=== PATIENT | male | born 1950 | race Hispanic/Latino ===

== ENCOUNTER 2016-05-18 07:19 | Inpatient (IN) | payer MEDICARE, OTHER ==
--- NOTE | 2016-05-18 09:23 | Emergency Department Report ---
Chief Complaint: Abdominal Pain Stated Complaint: ABD PAIN Time Seen by Provider: 05/18/16 09:23 - HPI History of Present Illness: Patient here with his reports that abdominal pain 3weeks. He is also reporting that he is having some shortness of breath. Pain to right lower quadrant is 10 out of 10 and feels crampy. Patient has history of diabetes hypertension. He said he has kidney disease and is on dialysis. Patient is blind. Has a history of coronary stent from CAD, appendectomy and fistula graft combination in left upper arm. Patient gets dialysis Saturday and Saturdays. reports the patient hasn't had a bowel movement in 3 weeks. Reports he has decreased appetite and only been eating Jell-O and apple sauce.Denies fever or chills. Denies patient with vomiting or diarrhea. - ROS Review of Systems: All systems are negative unless stated in HPI above. - Exam Vital Signs: Vital Signs 05/18/16 07:23 Temperature 98.1 F Pulse Rate 89 Blood Pressure 194/87 O2 Sat by Pulse 98 Oximetry Resp 20 Physical Exam: General: This is a 65-year-old male that is initiated and frail looking. CV: S1, S2 regular rate and rhythm. Patient with fistula/graft combination to left upper arm. Good thrill and audible bruit. Lungs: Clear to auscultate bilaterally, no rhonchi wheezes or rales. Abdomen: Soft with mild tenderness to palpate to right lower quadrant. No guarding or rebound tenderness. Normal bowel sounds in all quadrants. No distention or rigidity. MSE screening note: Focused history and physical exam performed. Due to findings the following was ordered:see [facility] ED Medical Decision Making - Medical Decision Making Medical decision making: Patient seen by provider in triage area. Appropriate protocol activated and patient to main ED to be seen by physician. ED Disposition for MSE Condition: Stable
[2016-05-18 09:59] LABS: Basophils % (Auto) 0.4 % (0.0-1.8); Eosinophils % (Auto) 0.3 % (0.0-4.3); Hematocrit 44.3 % (35.5-45.6); Hemoglobin 13.8 gm/dl (11.8-15.2); Mean Corpuscular HGB Conc 31 % (32-34); Mean Corpuscular Hemoglobin 28 pg (28-32); Mean Corpuscular Volume 89 fl (84-94); Platelet Count 133 K/mm3 (140-440); Red Blood Count 4.98 M/mm3 (3.65-5.03); Red Cell Distribution Width 18.4 % (13.2-15.2); White Blood Count 11.1 K/mm3 (4.5-11.0)
[2016-05-18 10:09] LABS: Creatine Kinase MB 3.8 ng/mL (0.0-4.0)
[2016-05-18 10:10] LABS: Albumin 3.8 g/dL (3.9-5); BUN/Creatinine Ratio 6.66; Bilirubin,Total 0.8 mg/dL (0.1-1.2); Calcium 8.9 mg/dL (8.4-10.2); Chloride 90.5 mmol/L (98-107); Potassium 3.4 mmol/L (3.6-5.0); Total Protein 7.8 g/dL (6.3-8.2)
--- NOTE | 2016-05-18 10:55 | XRay Report ---
CHEST 2 VIEWS: INDICATION: Shortness of breath. COMPARISON: 05/11/2016 FINDINGS: Frontal and lateral chest radiographs in this patient in wheelchair demonstrates some extrinsic artifact. Grossly stable cardiomediastinal silhouette and mild bibasilar opacity/effusions with obscured hemidiaphragms and costophrenic angle blunting. No overt CHF, however. Demineralized bones. CONCLUSION: Bilateral pleural effusions and possible COPD, as described. Thank you for the opportunity to participate in this patient's care.
--- NOTE | 2016-05-18 11:08 | XRay Report ---
Supine upright views of the abdomen: There is fecal matter scattered throughout the colon. There is no soft tissue mass and no free air. No soft tissue calcification. Compared to the prior examination of May 11, 2016 the general pattern is unchanged. Impression: Moderate fecal load. No recent finding.
--- NOTE | 2016-05-18 11:34 | Admit Criteria Form ---
Admission Criteria Documentation: ABDOMINAL PAIN Clinical Indications for Admission to Inpatient Care (Place 'X' for any and all applicable criteria): Admission is indicated for ANY ONE of the following(1)(2)(3)(4)(5): [X ]I. Inpatient admission required rather than observation care (Also use Abdominal Pain: Observation Care, as appropriate) because of ANY ONE of the following: [ ]a) Severe pain requiring acute inpatient management [ ]b) Identification of etiology/finding that requires inpatient care (eg, aortic dissection, free air) [ ]c) Absent bowel sounds with complete ileus(6) [ ]d) Suspected toxic megacolon [ ]e) Severe electrolyte abnormalities requiring inpatient care [ ]f) High fever or infection requiring inpatient admission as indicated by ANY ONE of following(7)(8): [ ] i) Appropriate outpatient or observational care antimicrobial treatment unavailable, not effective, or not feasible [ ] ii) Documented bacteremia [ ] iii) Temperature > 104.9 degrees F (oral) [ ] iv) T >103.1 F (oral) or < 96.8 F(rectal) that does not respond to all emergency treatment measures [ ]g) Signs of intestinal obstruction [B] [ ]h) Hemodynamic instability [ ]i) IV fluid to replace significant ongoing losses (greater than 3 L/m2 per day) (12)(13) [ ]j) Percutaneous or open drainage (eg, abscess, biliary tract ) procedures [ ]k) Parenteral nutrition regimen that must be implemented on inpatient basis [X ]l) Other condition,treatment or monitoring requiring inpatient admission. [ ]II. Peritoneal signs present [ ]III. Surgery needed that cannot be performed on an ambulatory basis. [ ]IV. Evaluation requires patient to not eat or drink for extended period ( eg, more than 24 hours). [ ]V. Contraindications and/or Inappropriate clinical situations for Observational Care in patients with abdominal pain, when ANY ONE of the following is required: [ ]a) Thorough evaluation is required to prevent catastrophic events due to delays in diagnosing (e.g.Mesenteric ischemia) 1,3 [ ]b) Patient with severe pathology or with chronic symptoms unlikely to improve in the ED stay (3) [X ]. General contraindications and/or Inappropriate clinical situations for Observational Care in patients with abdominal pain, when ANY ONE of the following is required: [X ]a) Prediction of prolongation of LOS based on ANY ONE of the following may be considered as a contraindication for observational care 2, 3, 4, 5, 6, 7, 8, 9, 10, 11 [X ]i) Age > 65 yrs. [ ]ii) Patient arriving by ambulance [ ]iii) Patient with high acuity [ ]iv) Patient requiring vital sign monitoring [ ]v) Patient on IV medication [ ]b) Systolic blood pressures 180mmHg 3,12 [ ]c) Patient with altered mental status including delirium and other alteration of consciousness, (3) [ ]d) Patient whose discharge disposition will be to a group home home or rehabilitation home should not be managed in Emergency Department Observation Unit. CMS rule requires 3 days hospital stay before such placement.3,13 [ ]e) Patient with failure to thrive due to broad array of etiologies 3,16,17 [ ]f) Inability to ambulate 3,14 Extended stay beyond goal length of stay may be needed for(2)(3): [ ]a) Persistent abdominal pain with suspected intra-abdominal process [ ]b) Diagnosed condition requiring continued stay (e.g., pancreatitis, complicated diverticulitis) [ ]c) Surgery (e.g., colectomy) The original [email or web address] content created by [employer] has been revised. The portions of the content which have been revised are identified through the use of italic text or in bold, and [facility] has neither reviewed nor approved the modified material.All other unmodified content is copyright [email or web address]. Please see references footnoted in the original [email or web address] edition 2016 Admission Criteria Met: Yes
--- NOTE | 2016-05-18 11:39 | Emergency Department Report ---
HPI - General Chief Complaint: Abdominal Pain Time Seen by Provider: 05/18/16 09:23 - HPI HPI: This is a 65-year-old male who presents to the emergency department with a 2 to three-week history of lower abdominal pain. Patient also says that over this time he has not been eating or drinking very much. He has not had a bowel movement in the past 3 days. He denies any fever, nausea, vomiting or bloody stools. Patient has a history of end stage renal disease on hemodialysis on Saturday, and Saturday. He has a history of type 2 diabetes, GERD, hypertension, blindness, coronary artery disease with stents. His accounts payable coordinator is Dr. Britton who allegedly told them to come to the emergency department yesterday during dialysis for further evaluation of his abdominal pain. His truck crane operator helper is Dr. Dacosta. His primary care doctor is a Dr. Workman. Patient was here a week ago and had a CT abdomen and pelvis at that time that showed diverticulosis without diverticulitis. Patient did have dialysis yesterday. ED Past Medical Hx - Past Medical History Hx Hypertension: Yes Hx Diabetes: Yes (Type 2 diabetes) Hx GERD: Yes Hx Renal Disease: Yes Hx Asthma: No Additional medical history: Total blindness - Surgical History Hx Coronary Stent: Yes Hx Appendectomy: Yes Additional Surgical History: port placements - Social History Smoking Status: Former Smoker Substance Use Type: None - Medications Home Medications: Home Medications Medication Instructions Recorded Confirmed Last Taken Type Aspirin EC [Aspirin Enteric Coated 81 mg PO DAILY 08/03/13 05/11/16 05/11/16 17: 36 History TAB] 0900 Furosemide 80 mg PO DAILY 08/03/13 05/11/16 05/10/16 09:00 History 40mg Insulin Glargine,Hum.rec.anlog 1 - 30 units SQ DAILY PRN 08/03/13 05/11/1604/12 09:00 History [Lantus Solostar] 1 NIFEdipine [Nifedical Xl] 60 mg PO DAILY 08/03/13 05/11/16 05/10/16 09:00 History 60 mg Sevelamer Carbonate [Renvela] 2 each PO TIDWM 08/03/13 05/11/16 05/10/16 18:00 History 2 Zolpidem [Ambien] 5 mg PO QHS 08/03/13 05/11/16 05/10/16 20:00 History 5mg Vit B Cmplx 3/FA/Vit C/Biotin 1 each PO QDAY 11/10/13 05/11/16 05/10/16 History [Nephro-Isaías Rx Tablet] 1 Vit B Cmplx 3/FA/Vit C/Biotin 1 each PO DAILY 04/21/16 05/11/16 05/10/16 09:00 History [Nephro-Isaías Rx Tablet] 1 Ondansetron [Zofran Odt] 4 mg PO Q8HR PRN #30 tab.rapdis 05/11/16 Unknown Rx traMADol [Ultram 50 MG tab] 50 mg PO Q6HR PRN #20 tablet 05/11/16 Unknown Rx ED Review of Systems ROS: Stated complaint: ABD PAIN Other details as noted in HPI Comment: All other systems reviewed and negative Constitutional: denies: chills, fever Eyes: denies: eye pain, eye discharge, vision change ENT: denies: ear pain, throat pain Respiratory: denies: cough, wheezing Cardiovascular: denies: chest pain, palpitations Gastrointestinal: abdominal pain. denies: nausea, vomiting Genitourinary: denies: urgency, dysuria Musculoskeletal: denies: back pain, joint swelling, arthralgia Skin: denies: rash, lesions Neurological: denies: headache, weakness, paresthesias Physical Exam - Physical Exam Vital Signs: Vital Signs 05/18/16 07:23 Temperature 98.1 F Pulse Rate 89 Blood Pressure 194/87 O2 Sat by Pulse 98 Oximetry Physical Exam: GENERAL: Patient is awake and alert. Cachectic appearance. HEENT: Normocephalic. Atraumatic. Extraocular motions are intact. Patient has moist mucous membranes. NECK: Supple. Trachea is midline. CHEST/LUNGS: Clear to auscultation. There is no respiratory distress noted. HEART/CARDIOVASCULAR: Regular. There is no tachycardia. There is no gallop rub or murmur. ABDOMEN: Abdomen is soft. Mild generalized tenderness to palpation of the abdomen. No guarding rebound tenderness. No peritoneal signs. Patient has normal bowel sounds. There is no abdominal distention. SKIN: Warm and dry. There is no diaphoresis. NEURO: The patient is awake, alert, and oriented. The patient is cooperative. The patient has no focal neurologic deficits. The patient has normal speech. MUSCULOSKELETAL: There is no tenderness or deformity. There is no limitation range of motion. There is no evidence of acute injury. ED Course Vital Signs 05/18/16 07:23 Temperature 98.1 F Pulse Rate 89 Blood Pressure 194/87 O2 Sat by Pulse 98 Oximetry ED Medical Decision Making - Lab Data Result diagrams: 05/18/16 09:34 05/18/16 09:34 - Radiology Data Radiology results: report reviewed, image reviewed interpreted by me: Abdominal x-ray shows a moderate amount of stool throughout the colon that appears hard but there are no signs of obstruction. Chest x-ray shows some hyperinflation of the lungs but some bilateral nasal or pleural effusions. - Medical Decision Making 65-year-old male presents with continued lower abdominal pain over the past 2-3 weeks. Patient previously had a CT of the abdomen and pelvis that showed diverticulosis without diverticulitis. Patient's labs today show renal sufficiency with the patient is end-stage renal disease on hemodialysis. He has elevated troponin but once again I believe it is more due to the renal insufficiency then to exacerbations of his coronary artery disease. However the patient has not been eating or drinking much and already appears cachectic and malnourished. Patient will be admitted to hospital for further evaluation and has been accepted for admission by the hospitalist Dr Frances. - Differential Diagnosis diverticulosis, colitis, obstruction, constipation Critical Care Time: No Critical care attestation.: If time is entered above; I have spent that time in minutes in the direct care of this critically ill patient, excluding procedure time. ED Disposition Clinical Impression: ESRD (end stage renal disease) on dialysis, Bilateral pleural effusion, Hypertensive urgency Abdominal pain Qualifiers: Abdominal location: generalized Qualified Code(s): R10.84 - Generalized abdominal pain Disposition: OP ADMITTED IP TO THIS HOSP Is pt being admited?: Yes Condition: Stable Time of Disposition: 11:42
[2016-05-18] MEDS ORDERED: APRESOLINE IV ONE (11:42)
[2016-05-18] MEDS ORDERED: TYLENOL PO PRN (11:52)
[2016-05-18] MEDS ORDERED: DULCOLAX PR PRN (11:52)
[2016-05-18] MEDS ORDERED: ZOFRAN IV PRN (11:52)
[2016-05-18] MEDS ORDERED: MILK OF MAGNESIA PO PRN (11:52)
[2016-05-18] MEDS ORDERED: CEPHULAC PO ONE (11:59)
[2016-05-18] MEDS ORDERED: CITRATE OF MAGNESIA PO ONE (11:59)
[2016-05-18] MEDS ORDERED: ULTRAM PO PRN (12:00)
[2016-05-18] MEDS ORDERED: D5W/0.45% NACL/KCL 20 MEQ 1,000 ML IV SCH (12:00)
--- NOTE | 2016-05-18 12:04 | History and Physical Report ---
History of Present Illness Date of examination: 05/18/16 Date of admission: 05/18/16 Chief complaint: Abdominal pain History of present illness: Patient is a 65-year-old male who presents to the ER with complaint of visit 3 weeks of right lower quadrant abdominal pain was initially seen in the hospital a few weeks ago and discharged but has not improved. He does have a past medical history of hypertension, coronary artery disease diabetes mellitus, GERD, blindness stage renal disease on hemodialysis. He is a poor historian but is accompanied by family who states that the patient has been gradually declining. He has not been able to tolerate by mouth clinic and lack of appetite and often pain with swallowing. He's not had any fever no nausea no vomiting no diarrhea no bright red blood per rectum. He goes to hemodialysis Tuesdays and Saturdays. About a week ago when he was in the ER CT of the abdomen and pelvis showed diverticulosis without diverticulitis. He was last dialyzed yesterday. He's lost a remarkable amount of weight but they're unable to quantify. He does have chronically elevated creatinine. Family states that he was told he has a blockage in his artery but medical management was recommended. The abdominal pain he rates 5/10 intensity is intermittent with no aggravating medicating factor. ROS Constitutional: No feve. reports weight loss and fatigue. Skin: No rash. Eyes: No recent vision problems or eye pain. ENT: No congestion, ear pain, or sore throat. Endocrine: No thyroid problems. Cardiovascular: No chest pain. Respiratory: No cough, shortness of breath, congestion, or wheezing. Gastrointestinal: Reports abdominal pain with no nausea, vomiting, or diarrhea. Genitourinary: No dysuria. Musculoskeletal: No joint swelling. Neurologic: No seizures. Hematologic: No unusual bruising or bleeding. Psychiatric: No psychiatric problems, hallucinations or depression. All other systems reviewed and otherwise negative. Past History Past Medical History: diabetes, hypertension, hyperlipidemia, other (blind) Past Surgical History: appendectomy, Other (dialysis port) Social history: , full code Family history: no significant family history Medications and Allergies Allergies Allergy/AdvReac Type Severity Reaction Status Date / Time No Known Allergies Allergy Verified 08/03/13 12:41 Home Medications Medication Instructions Recorded Confirmed Last Taken Type Aspirin EC [Aspirin Enteric Coated 81 mg PO DAILY 08/03/13 05/11/16 05/11/16 17: 36 History TAB] 0900 Furosemide 80 mg PO DAILY 08/03/13 05/11/16 05/10/16 09:00 History 40mg Insulin Glargine,Hum.rec.anlog 1 - 30 units SQ DAILY PRN 08/03/13 05/11/1604/12 09:00 History [Lantus Solostar] 1 NIFEdipine [Nifedical Xl] 60 mg PO DAILY 08/03/13 05/11/16 05/10/16 09:00 History 60 mg Sevelamer Carbonate [Renvela] 2 each PO TIDWM 08/03/13 05/11/16 05/10/16 18:00 History 2 Zolpidem [Ambien] 5 mg PO QHS 08/03/13 05/11/16 05/10/16 20:00 History 5mg Vit B Cmplx 3/FA/Vit C/Biotin 1 each PO QDAY 11/10/13 05/11/16 05/10/16 History [Nephro-Isaías Rx Tablet] 1 Vit B Cmplx 3/FA/Vit C/Biotin 1 each PO DAILY 04/21/16 05/11/16 05/10/16 09:00 History [Nephro-Isaías Rx Tablet] 1 Ondansetron [Zofran Odt] 4 mg PO Q8HR PRN #30 tab.rapdis 05/11/16 Unknown Rx traMADol [Ultram 50 MG tab] 50 mg PO Q6HR PRN #20 tablet 05/11/16 Unknown Rx Active Meds: Active Medications Acetaminophen (Tylenol) 650 mg PO Q4H PRN PRN Reason: Pain MILD(1-3)/Fever >100.5/HUYNH Aspirin (Halfprin Ec) 81 mg PO DAILY YVONNE Bisacodyl (Dulcolax) 10 mg [place] QDAY PRN PRN Reason: Constipation unrelieved by MOM Docusate Sodium (Colace) 100 mg PO BID YVONNE Furosemide (Lasix) 80 mg PO DAILY YVONNE Heparin Sodium (Porcine) (Heparin) 5,000 unit SUB-Q Q8HR YVONNE Hydralazine HCl (Apresoline) 10 mg IV Q4HR PRN PRN Reason: sbp>160 or dbp >105 Potassium Chloride/Dextrose/Sod Cl (D5w/0.45% Nacl/Kcl 20 Meq) 1,000 mls @ 75 mls/hr IV DIRECT YVONNE Magnesium Hydroxide (Milk Of Magnesia) 30 ml PO Q4H PRN PRN Reason: Constipation Nifedipine (Procardia Xl) 60 mg PO DAILY YVONNE Ondansetron HCl (Zofran) 4 mg IV Q8H PRN PRN Reason: N/V unrelieved by Reglan Sevelamer Carbonate (Renvela) mg PO TIDWM YVONNE Tramadol HCl (Ultram) 50 mg PO Q6HR PRN PRN Reason: Pain Zolpidem Tartrate (Ambien) 5 mg PO QHS YVONNE Exam - Physical Exam Narrative exam: VITAL SIGNS: Reviewed. GENERAL: The patient appeared fatigued and markedly cachectic. Vital signs as documented. HEAD: No signs of head trauma. Marked temporal wasting EYES: Pupils are equal. Extraocular motions intact. EARS: Hearing grossly intact. MOUTH: Oropharynx is normal. NECK: No adenopathy, no JVD. CHEST: Chest with clear breath sounds bilaterally. No wheezes, rales, or rhonchi. CARDIAC: Regular rate and rhythm. S1 and S2, without murmurs, gallops, or rubs. VASCULAR: No Edema. Peripheral pulses normal and equal in all extremities. ABDOMEN: Soft, without detectable tenderness. No sign of distention. No rebound or guarding, and no masses palpated. Bowel Sounds normal. MUSCULOSKELETAL: Good range of motion of all major joints. Extremities without clubbing, cyanosis or edema. NEUROLOGIC EXAM: Alert and oriented x 3. No focal sensory or strength deficits. Speech normal. Follows commands. PSYCHIATRIC: Mood normal. SKIN: Bilateral lower extremity lesions with dressing in place no overt drainage or erythema no warmth. - Constitutional Vitals: Temp Pulse Resp BP Pulse Ox 98.1 F 89 194/87 98 05/18/16 07:23 05/18/16 07:23 05/18/16 07:23 05/18/16 07:23 Results - Labs CBC & Chem 7: 05/18/16 09:34 05/18/16 09:34 Labs: Laboratory Last Values WBC 11.1 K/mm3 (4.5-11.0) H 05/18/16 09:34 RBC 4.98 M/mm3 (3.65-5.03) 05/18/16 09:34 Hgb 13.8 gm/dl (11.8-15.2) 05/18/16 09:34 Hct 44.3 % (35.5-45.6) 05/18/16 09:34 MCV 89 fl (84-94) 05/18/16 09:34 MCH 28 pg (28-32) 05/18/16 09:34 MCHC 31 % (32-34) L 05/18/16 09:34 RDW 18.4 % (13.2-15.2) H 05/18/16 09:34 Plt Count 133 K/mm3 (140-440) L 05/18/16 09:34 Lymph % (Auto) 7.2 % (13.4-35.0) L 05/18/16 09:34 [place] % (Auto) 7.6 % (0.0-7.3) H 05/18/16 09:34 Eos % (Auto) 0.3 % (0.0-4.3) 05/18/16 09:34 Baso % (Auto) 0.4 % (0.0-1.8) 05/18/16 09:34 Lymph # 0.8 K/mm3 (1.2-5.4) L 05/18/16 09:34 [place] # 0.8 K/mm3 (0.0-0.8) 05/18/16 09:34 Eos # 0.0 K/mm3 (0.0-0.4) 05/18/16 09:34 Baso # 0.0 K/mm3 (0.0-0.1) 05/18/16 09:34 Seg Neutrophils % 84.5 % (40.0-70.0) H 05/18/16 09:34 Seg Neutrophils # 9.3 K/mm3 (1.8-7.7) H 05/18/16 09:34 Sodium 138 mmol/L (137-145) 05/18/16 09:34 Potassium 3.4 mmol/L (3.6-5.0) L 05/18/16 09:34 Chloride 90.5 mmol/L (98-107) L 05/18/16 09:34 Carbon Dioxide 28 mmol/L (22-30) 05/18/16 09:34 Anion Gap 23 mmol/L 05/18/16 09:34 BUN 36 mg/dL (9-20) H 05/18/16 09:34 Creatinine 5.4 mg/dL (0.8-1.5) H 05/18/16 09:34 Estimated GFR 11 ml/min 05/18/16 09:34 BUN/Creatinine Ratio 6.66 % 05/18/16 09:34 Glucose 117 mg/dL (75-100) H 05/18/16 09:34 Calcium 8.9 mg/dL (8.4-10.2) 05/18/16 09:34 Total Bilirubin 0.8 mg/dL (0.1-1.2) 05/18/16 09:34 AST 14 units/L (5-40) 05/18/16 09:34 ALT 6 units/L (7-56) L 05/18/16 09:34 Alkaline Phosphatase 65 units/L (35-129) 05/18/16 09:34 Total Creatine Kinase 32 units/L (55-170) L 05/18/16 09:34 CK-MB (CK-2) 3.8 ng/mL (0.0-4.0) 05/18/16 09:34 CK-MB (CK-2) Rel Index 11.8 (0-4) H 05/18/16 09:34 Troponin T 0.304 ng/mL (0.00-0.029) H* 05/18/16 09:34 Total Protein 7.8 g/dL (6.3-8.2) 05/18/16 09:34 Albumin 3.8 g/dL (3.9-5) L 05/18/16 09:34 Albumin/Globulin Ratio 1.0 % 05/18/16 09:34 Amylase 16 units/L (27-131) L 05/18/16 09:34 Lipase 10 units/L (13-60) L 05/18/16 09:34 - Imaging and Cardiology Chest x-ray: image reviewed (personally reviewed shows bilateral pleural effusion) CT scan - abdomen: image reviewed (personally reviewed shows large stool blood) Assessment and Plan Assessment and plan: Patient is a 65-year-old male who presents to the ER with complaint of visit 3 weeks of right lower quadrant abdominal pain was initially seen in the hospital a few weeks ago and discharged but has not improved. He does have a past medical history of hypertension, coronary artery disease diabetes mellitus, GERD, blindness stage renal disease on hemodialysis. He is a poor historian but is accompanied by family who states that the patient has been gradually declining. He has not been able to tolerate by mouth clinic and lack of appetite and often pain with swallowing. He's not had any fever no nausea no vomiting no diarrhea no bright red blood per rectum. He goes to hemodialysis Tuesdays and Saturdays. About a week ago when he was in the ER CT of the abdomen and pelvis showed diverticulosis without diverticulitis. He was last dialyzed yesterday. He's lost a remarkable amount of weight but they're unable to quantify. He does have chronically elevated creatinine. Family states that he was told he has a blockage in his artery but medical management was recommended. The abdominal pain he rates 5/10 intensity is intermittent with no aggravating medicating factor. * Right lower quadrant abdominal pain * Likely secondary to constipation * ? any other pathology * Severe constipation * Stool softeners * Failure to thrive BMI 17.4 * We'll obtain nutrition consult. * Family she did not do well with appetite suppressant and nausea which one. * Severe malnutrition * Back Tender [employer]ing consultation as noted above * Accelerated malignant hypertension * We'll resume home medication with tramadol without hydralazine when necessary. This may need to be up titrated. * Diabetes mellitus * We'll start insulin sliding scale and Accu-Cheks before meals and daily at bedtime * End-stage renal disease * We'll consult shipping clerk crating * GERD * PPI when necessary * Legally blind * Leukocytosis * Appears reactive but will monitor patient for fever at this time. * Hypokalemia * Replace * Diverticulosis * CAD with ? Cardiomyopathy * Continue aspirin * Chronically elevated troponin * Stable patient currently with no chest pain continue home medications. * Bilateral pleural effusion * We'll obtain thoracentesis for diagnostic purposes considering patient's severe cachectic appearance rule out malignancy. * DVT and GI prophylaxis Advance Directives: Yes Plan of care discussed with patient/family: Yes
[2016-05-18] MEDS ORDERED: D50W (25GM) IV PRN (12:05)
[2016-05-18] MEDS: RENVELA PO SCH ×2 (14:00→18:49)
[2016-05-18] MEDS: COLACE PO SCH ×2 (14:06→23:38)
[2016-05-18 14:09] LABS: INR 0.96 (0.87-1.13)
[2016-05-18] MEDS: HEPARIN SUB-Q SCH ×2 (15:18→23:38)
[2016-05-18] MEDS: PROCARDIA XL PO SCH (15:20)
--- NOTE | 2016-05-18 16:05 | Consultation ---
History of Present Illness - Reason for Consult Consult date: 05/18/16 end stage renal disease Requesting physician: ENIO RUELAS - History of Present Illness This is a 65 year old male with PMH of ESRD on HD, diabetes mellitus type 2 insulin dependent, hypertension, legally blind, and CAD who presented to [facility] today with complaints of right lower quadrant abdominal pain, constipation, loss of appetite, dysphagia, and shortness of breath. Patient states his shortness of breath is about his baseline, no acute distress. Patient s/p Abdominal X Ray which showed moderate fecal load. Chest X Ray showed bilateral pleural effusions, possible COPD, no overt CHF. Patient denies any chest pain, fever, hematuria, dysuria, bloody or black stool (states not to his knowledge given he is legally blind), diarrhea, nausea, or vomiting. We were consulted to evaluate this patient who has ESRD and requires hemodialysis and renal management. This patient undergoes outpatient HD at [facility] every Saturday, , and Saturday. Last HD treatment was yesterday. Patient seen in the radiology suite. Patient in no acute distress. Past History Past Medical History: diabetes, dialysis, hypertension, hyperlipidemia, other ( blind) Past Surgical History: appendectomy, Other (dialysis port) Social history: , full code Family history: no significant family history Medications and Allergies Allergies Allergy/AdvReac Type Severity Reaction Status Date / Time No Known Allergies Allergy Verified 08/03/13 12:41 Home Medications Medication Instructions Recorded Confirmed Last Taken Type Aspirin EC [Aspirin Enteric Coated 81 mg PO DAILY 08/03/13 05/18/16 05/11/16 17: 36 History TAB] 0900 Furosemide 80 mg PO DAILY 08/03/13 05/18/16 05/10/16 09:00 History 40mg Insulin Glargine,Hum.rec.anlog 1 - 30 units SQ DAILY PRN 08/03/13 05/18/1604/12 09:00 History [Lantus Solostar] 1 NIFEdipine [Nifedical Xl] 60 mg PO DAILY 08/03/13 05/18/16 05/10/16 09:00 History 60 mg Sevelamer Carbonate [Renvela] 2 each PO TIDWM 08/03/13 05/18/16 05/10/16 18:00 History 2 Zolpidem [Ambien] 5 mg PO QHS 08/03/13 05/18/16 05/10/16 20:00 History 5mg Vit B Cmplx 3/FA/Vit C/Biotin 1 each PO QDAY 11/10/13 05/18/16 05/10/16 History [Nephro-Isaías Rx Tablet] 1 Vit B Cmplx 3/FA/Vit C/Biotin 1 each PO DAILY 04/21/16 05/18/16 05/10/16 09:00 History [Nephro-Isaías Rx Tablet] 1 Ondansetron [Zofran Odt] 4 mg PO Q8HR PRN #30 tab.rapdis 05/11/16 05/18/16 Unknown Rx traMADol [Ultram 50 MG tab] 50 mg PO Q6HR PRN #20 tablet 05/11/16 05/18/16 Unknown Rx Active Meds: Active Medications Acetaminophen (Tylenol) 650 mg PO Q4H PRN PRN Reason: Pain MILD(1-3)/Fever >100.5/HUYNH Aspirin (Halfprin Ec) 81 mg PO DAILY YVONNE Bisacodyl (Dulcolax) 10 mg UT QDAY PRN PRN Reason: Constipation unrelieved by [facility] Dextrose (D50w (25gm)) 50 ml IV PRN PRN PRN Reason: Hypoglycemia Docusate Sodium (Colace) 100 mg PO BID [facility] Last Admin: 05/18/16 14:06 Dose: 100 mg Furosemide (Lasix) 80 mg PO DAILY [facility] Heparin Sodium (Porcine) (Heparin) 5,000 unit SUB-Q Q8HR YVONNE Hydralazine HCl (Apresoline) 10 mg IV Q4HR PRN PRN Reason: sbp>160 or dbp >105 Potassium Chloride/Dextrose/Sod Cl (D5w/0.45% Nacl/Kcl 20 Meq) 1,000 mls @ 75 mls/hr IV DIRECT YVONNE Insulin Aspart (Novolog) 0 units SUB-Q ACHS YVONNE PRN Reason: Protocol Magnesium Hydroxide (Milk Of Magnesia) 30 ml PO Q4H PRN PRN Reason: Constipation Nifedipine (Procardia Xl) 60 mg PO DAILY YVONNE Ondansetron HCl (Zofran) 4 mg IV Q8H PRN PRN Reason: N/V unrelieved by Reglan Sevelamer Carbonate (Renvela) 800 mg PO TIDWM [facility] Last Admin: 05/18/16 14:00 Dose: Not Given Tramadol HCl (Ultram) 50 mg PO Q6HR PRN PRN Reason: Pain Zolpidem Tartrate (Ambien) 5 mg PO QHS [facility] Review of Systems Constitutional: weight loss, fatigue, weakness, no fever Ears, nose, mouth and throat: no headache Cardiovascular: shortness of breath, dyspnea on exertion, no chest pain, no leg edema Respiratory: shortness of breath, dyspnea on exertion, no home oxygen Gastrointestinal: abdominal pain (right lower quadrant pain), constipation, loss of appetite, no nausea, no vomiting, no diarrhea, no hematemesis Genitourinary Male: no dysuria, no hematuria Musculoskeletal: no arm numbness/tingling, no leg numbness/tingling Integumentary: sores (bilateral lower extremity skin sores noted) Neurological: no tingling, no seizures, no headaches Psychiatric: anxiety, depression Endocrine: other (history of diabetes mellitus) Exam - Vital Signs Vital signs: Vital Signs Temp Pulse BP Pulse Ox 98.1 F 89 194/87 98 05/18/16 07:23 05/18/16 07:23 05/18/16 07:23 05/18/16 07:23 - General Appearance General appearance: frail (no acute distress) EENT: ATNC (Legally blind in both eyes) Neck: Present: neck supple Respiratory: Other (Lung sounds decreased bilaterally, unlabored) Heart: regular, S1S2, other (ACCESS: Left Arteriovenous shunt with positive thrill and bruit noted) Gastrointestinal: Present: normoactive bowel sounds, tenderness (right lower quadrant pain) Integumentary: rash (bilateral lower extremity skin sores noted) Neurologic: alert and oriented x3 Musculoskeletal: Present: other (no edema to both lower extremities) Psychiatric: mood/affect appropriate, cooperative Results - Lab Results 05/18/16 09:34 05/18/16 09:34 Most recent lab results Calcium 8.9 mg/dL (8.4-10.2) 05/18/16 09:34 Assessment and Plan - Patient Problems (1) ESRD (end stage renal disease) on dialysis Current Visit: Yes Status: Acute Plan to address problem: Status post Hemodialysis yesterday No acute indication for HD today Left Arteriovenous shunt with positive thrill and bruit Assess need for HD on daily basis Hemodialysis tomorrow for ultrafiltration and clearance Chest X Ray showed bilateral pleural effusions, possible COPD, no overt CHF per radiology report Continue renvela for now, will check phosphorus in the morning Renally dose medications Diabetic/Renal diet Maintain fluid restriction of 1 liter per day This patient undergoes outpatient HD at [facility] every Saturday, , and Saturday. Last HD treatment was 05/17/16. Obtain daily weight Strict intake and output Renal plan discussed with Dr Britton Continue supportive therapy (2) Hypokalemia Current Visit: No Status: Acute Plan to address problem: Replete potassium Hemodialysis prescription adjusted to [facility] for hypokalemia management (3) Type 2 diabetes mellitus with ESRD (end-stage renal disease) Current Visit: Yes Status: Acute Plan to address problem: As per primary team On insulin (4) Hypertensive kidney disease with ESRD on dialysis Current Visit: Yes Status: Acute Plan to address problem: Started on nifedipine 60 mg orally once a day, monitor blood pressure and adjust medications as needed (5) Abdominal pain Current Visit: Yes Status: Acute Qualifiers: Abdominal location: generalized Qualified Code(s): R10.84 - Generalized abdominal pain Plan to address problem: Status post Abdominal X Ray today showed moderate fecal load (6) Bilateral pleural effusion Current Visit: Yes Status: Acute Plan to address problem: Possible need for thoracentesis during this hospitalization, will follow up
[2016-05-18] MEDS ORDERED: NACL 0.9% 1000 ML 100 ML IV PRN (16:27)
[2016-05-18] MEDS ORDERED: KCL 10MEQ/100ML 100 ML IV ONE (16:41)
[2016-05-18] MEDS: LASIX PO SCH (17:23)
[2016-05-18] MEDS: NOVOLOG SUB-Q SCH ×2 (18:23→23:45)
[2016-05-18] MEDS: APRESOLINE IV PRN (21:58)
[2016-05-18] MEDS: AMBIEN PO SCH (23:38)
[2016-05-19] MEDS: HEPARIN SUB-Q SCH (06:00)
[2016-05-19 07:10] LABS: Basophils % (Auto) 0.3 % (0.0-1.8); Eosinophils % (Auto) 0.1 % (0.0-4.3); Hematocrit 40.4 % (35.5-45.6); Hemoglobin 12.5 gm/dl (11.8-15.2); Mean Corpuscular HGB Conc 31 % (32-34); Mean Corpuscular Hemoglobin 28 pg (28-32); Mean Corpuscular Volume 91 fl (84-94); Platelet Count 120 K/mm3 (140-440); Red Blood Count 4.47 M/mm3 (3.65-5.03); Red Cell Distribution Width 18.8 % (13.2-15.2)
[2016-05-19 07:24] LABS: BUN/Creatinine Ratio 7.41; Calcium 8.9 mg/dL (8.4-10.2)
[2016-05-19 07:36] LABS: Potassium 4.7 mmol/L (3.6-5.0)
[2016-05-19] MEDS: NOVOLOG SUB-Q SCH ×4 (08:29→23:05)
[2016-05-19 08:36] LABS: Magnesium 2.7 mg/dL (1.7-2.3)
[2016-05-19] MEDS: APRESOLINE IV PRN (09:01)
[2016-05-19] MEDS ORDERED: HALFPRIN EC PO SCH (10:00)
--- NOTE | 2016-05-19 12:04 | Progress Note ---
Assessment and Plan Assessment and plan: Patient is a 65-year-old man history end-stage renal disease on hemodialysis Saturday, type 2 diabetes mellitus, hypertension, coronary artery disease and blindness who presents with abdominal pain and dysphagia. He was found to have fecal impaction. Fecal impaction resolved End-stage renal disease needing hemodialysis Dysphagia: Consult GI Bilateral pleural effusion, thoracentesis ordered but counseled by department because he is on aspirin, d/c ivf Elevated troponin: Consult cardiology Leukocytosis most likely reactive, will monitor Thrombocytopenia, most likely chronic, repeat CBC Type 2 diabetes mellitus, chronic and stable hypertension, chronic and stable DVT prophylaxis: scd only, due to low plt GI prophylaxis: add protonix Full code Disposition: Continue inpatient care, anticipate discharge after cardiology and GI evaluation possible EGD History Interval history: Patient seen and examined. Follow up on abdominal pain which has resolved once constipation resolved. Overnight uneventful. No cp, sob, n/v or severe headaches. Imaging, old records, testing, labs, nursing notes reviewed. New issue is dysphagia to solids. Hospitalist Physical - Physical exam Narrative exam: GEN: Cachectic BMI 17 NAD, AWAKE, ALERT, ORIENTATED 3 HEENT: NCAT, PERRL, EOMI, OP CLEAR NECK: SUPPLE, NO THYROMEGALY, NO JVD, NO LAD CVS: RRR, NORMAL S1S2 LUNGS/CHEST: NORMAL CHEST EXPANSION B, mildly reduced AIR ENTRY B, not on oxygen sat 96% ABD: SOFT NTND, GBS, NO REBOUND OR GUARDING EXT/SKIN: NO SIGNIFICANT EDEMA OR RASH MSK: FROM X 4 EXTREMITIES NEURO: CN 2-12 GROSSLY INTACT except for blindness, NO NEW FOCAL DEFICITS PSY: CALM - Constitutional Vitals: Temp Pulse Resp BP Pulse Ox 97.6 F 84 24 133/53 96 05/19/16 10:10 05/19/16 11:30 05/19/16 10:45 05/19/16 11:30 05/19/16 08:33 Results - Labs CBC & Chem 7: 05/19/16 06:23 05/19/16 06:23 Labs: Laboratory Last Values WBC 13.0 K/mm3 (4.5-11.0) H 05/19/16 06:23 RBC 4.47 M/mm3 (3.65-5.03) 05/19/16 06:23 Hgb 12.5 gm/dl (11.8-15.2) 05/19/16 06:23 Hct 40.4 % (35.5-45.6) 05/19/16 06:23 MCV 91 fl (84-94) 05/19/16 06:23 MCH 28 pg (28-32) 05/19/16 06:23 MCHC 31 % (32-34) L 05/19/16 06:23 RDW 18.8 % (13.2-15.2) H 05/19/16 06:23 Plt Count 120 K/mm3 (140-440) L 05/19/16 06:23 Lymph % (Auto) 4.3 % (13.4-35.0) L 05/19/16 06:23 [place] % (Auto) 7.5 % (0.0-7.3) H 05/19/16 06:23 Eos % (Auto) 0.1 % (0.0-4.3) 05/19/16 06:23 Baso % (Auto) 0.3 % (0.0-1.8) 05/19/16 06:23 Lymph # 0.6 K/mm3 (1.2-5.4) L 05/19/16 06:23 [place] # 1.0 K/mm3 (0.0-0.8) H 05/19/16 06:23 Eos # 0.0 K/mm3 (0.0-0.4) 05/19/16 06:23 Baso # 0.0 K/mm3 (0.0-0.1) 05/19/16 06:23 Seg Neutrophils % 87.8 % (40.0-70.0) H 05/19/16 06:23 Seg Neutrophils # 11.4 K/mm3 (1.8-7.7) H 05/19/16 06:23 PT 12.7 Sec. (12.2-14.9) 05/18/16 13:53 INR 0.96 (0.87-1.13) 05/18/16 13:53 Sodium 139 mmol/L (137-145) 05/19/16 06:23 Potassium 4.7 mmol/L (3.6-5.0) D 05/19/16 06:23 Chloride 93.0 mmol/L (98-107) L 05/19/16 06:23 Carbon Dioxide 30 mmol/L (22-30) 05/19/16 06:23 Anion Gap 21 mmol/L 05/19/16 06:23 BUN 46 mg/dL (9-20) H 05/19/16 06:23 Creatinine 6.2 mg/dL (0.8-1.5) H 05/19/16 06:23 Estimated GFR 9 ml/min 05/19/16 06:23 BUN/Creatinine Ratio 7.41 % 05/19/16 06:23 Glucose 145 mg/dL (75-100) H 05/19/16 06:23 POC Glucose 112 (70-105) H 05/19/16 06:32 Calcium 8.9 mg/dL (8.4-10.2) 05/19/16 06:23 Phosphorus 4.0 mg/dL (2.5-4.5) 05/19/16 06:23 Magnesium 2.7 mg/dL (1.7-2.3) H 05/19/16 06:23 Total Bilirubin 0.8 mg/dL (0.1-1.2) 05/18/16 09:34 AST 14 units/L (5-40) 05/18/16 09:34 ALT 6 units/L (7-56) L 05/18/16 09:34 Alkaline Phosphatase 65 units/L (35-129) 05/18/16 09:34 Total Creatine Kinase 32 units/L (55-170) L 05/18/16 09:34 CK-MB (CK-2) 3.8 ng/mL (0.0-4.0) 05/18/16 09:34 CK-MB (CK-2) Rel Index 11.8 (0-4) H 05/18/16 09:34 Troponin T 0.304 ng/mL (0.00-0.029) H* 05/18/16 09:34 Total Protein 7.8 g/dL (6.3-8.2) 05/18/16 09:34 Albumin 3.8 g/dL (3.9-5) L 05/18/16 09:34 Albumin/Globulin Ratio 1.0 % 05/18/16 09:34 Amylase 16 units/L (27-131) L 05/18/16 09:34 Lipase 10 units/L (13-60) L 05/18/16 09:34 - Imaging and Cardiology Chest x-ray: report reviewed
[2016-05-19] MEDS: RENVELA PO SCH ×2 (13:58→17:37)
[2016-05-19] MEDS: COLACE PO SCH ×2 (13:58→21:32)
[2016-05-19] MEDS: LASIX PO SCH (13:59)
[2016-05-19] MEDS: PROCARDIA XL PO SCH (13:59)
--- NOTE | 2016-05-19 14:23 | Progress Note ---
Assessment and Plan - Patient Problems (1) ESRD (end stage renal disease) on dialysis Current Visit: Yes Status: Acute Plan to address problem: Hemodialysis today for ultrafiltration and clearance Left Arteriovenous shunt with positive thrill and bruit Assess need for HD on daily basis Continue renvela Discontinue IV fluids Renally dose medications Diabetic/Renal diet Maintain fluid restriction of 1 liter per day Obtain daily weight Strict intake and output Renal plan discussed with Dr Britton Continue supportive therapy (2) Type 2 diabetes mellitus with ESRD (end-stage renal disease) Current Visit: Yes Status: Acute Plan to address problem: As per primary team On insulin (3) Hypertensive kidney disease with ESRD on dialysis Current Visit: Yes Status: Acute Plan to address problem: On nifedipine 60 mg orally once a day, monitor blood pressure and adjust medications as needed (4) Bilateral pleural effusion Current Visit: Yes Status: Acute Plan to address problem: Thoracentesis was discontinued yesterday since patient was on aspirin (5) Dysphagia Current Visit: Yes Status: Acute Plan to address problem: Gastroenterology consulted, follow up recs (6) Abdominal pain Current Visit: Yes Status: Acute Qualifiers: Abdominal location: generalized Qualified Code(s): R10.84 - Generalized abdominal pain Plan to address problem: Status post Abdominal X Ray on 05/18/16 showed moderate fecal load Subjective Date of service: 05/19/16 Interval history: Patient voiced no complaints at this time, just returned from having dialysis. Family at bedside, request GI consult for evaluation of dsyphagia. Objective - Vital Signs Vital signs: Vital Signs - 12hr 05/19/16 05/19/16 05/19/16 08:00 08:33 09:01 Temperature 98 F Pulse Rate Pulse Rate [ 88 Right] Respiratory 16 Rate Blood Pressure 207/88 Blood Pressure 207/88 [Right Arm] O2 Sat by Pulse 95 96 Oximetry 05/19/16 05/19/16 05/19/16 10:10 10:15 10:20 Temperature 97.6 F Pulse Rate 88 87 88 Pulse Rate [ Right] Respiratory 24 Rate Blood Pressure 152/65 155/77 152/65 Blood Pressure [Right Arm] O2 Sat by Pulse Oximetry 05/19/16 05/19/16 05/19/16 10:30 10:45 11:00 Temperature Pulse Rate 87 87 85 Pulse Rate [ Right] Respiratory 24 Rate Blood Pressure 149/64 133/55 134/60 Blood Pressure [Right Arm] O2 Sat by Pulse Oximetry 05/19/16 05/19/16 05/19/16 11:15 11:30 11:45 Temperature Pulse Rate 87 84 82 Pulse Rate [ Right] Respiratory Rate Blood Pressure 144/66 133/53 124/59 Blood Pressure [Right Arm] O2 Sat by Pulse Oximetry 05/19/16 05/19/16 05/19/16 12:00 12:15 12:30 Temperature Pulse Rate 84 81 81 Pulse Rate [ Right] Respiratory Rate Blood Pressure 140/63 130/56 119/54 Blood Pressure [Right Arm] O2 Sat by Pulse Oximetry 05/19/16 05/19/16 05/19/16 12:45 13:00 13:15 Temperature Pulse Rate 83 82 79 Pulse Rate [ Right] Respiratory Rate Blood Pressure 125/59 135/55 101/49 Blood Pressure [Right Arm] O2 Sat by Pulse Oximetry 05/19/16 05/19/16 13:25 13:54 Temperature 94.4 F L Pulse Rate 82 82 Pulse Rate [ Right] Respiratory 22 Rate Blood Pressure 166/67 166/67 Blood Pressure [Right Arm] O2 Sat by Pulse Oximetry - General Appearance General appearance: frail (no acute distress) EENT: ATNC (legally blind) Neck: no JVD Respiratory: Present: Other (Lung sounds decreased bilaterally, unlabored) Cardiology: regular, S1S2, other (ACCESS: Left Arteriovenous shunt with positive thrill and bruit noted) Gastrointestinal: normoactive bowel sounds, no tenderness Integumentary: other (skin sores to both lower extremities) Neurologic: alert and oriented x3 Musculoskeletal: other (no edema to both lower extremities) Psychiatric: cooperative - Lab 05/19/16 06:23 05/19/16 06:23 Most recent lab results Calcium 8.9 mg/dL (8.4-10.2) 05/19/16 06:23 Phosphorus 4.0 mg/dL (2.5-4.5) 05/19/16 06:23 Magnesium 2.7 mg/dL (1.7-2.3) H 05/19/16 06:23
--- NOTE | 2016-05-19 16:59 | Consultation ---
History of Present Illness - Reason for Consult Consult date: 05/19/16 - History of Present Illness See dictated consult note. Past History Past Medical History: diabetes, dialysis, hypertension, hyperlipidemia, other ( blind) Past Surgical History: appendectomy, Other (dialysis port) Social history: , full code Family history: no significant family history Medications and Allergies Allergies Allergy/AdvReac Type Severity Reaction Status Date / Time No Known Allergies Allergy Verified 08/03/13 12:41 Home Medications Medication Instructions Recorded Confirmed Last Taken Type Aspirin EC [Aspirin Enteric Coated 81 mg PO DAILY 08/03/13 05/18/16 05/11/16 17: 36 History TAB] 0900 Furosemide 80 mg PO DAILY 08/03/13 05/18/16 05/10/16 09:00 History 40mg Insulin Glargine,Hum.rec.anlog 1 - 30 units SQ DAILY PRN 08/03/13 05/18/1604/12 09:00 History [Lantus Solostar] 1 NIFEdipine [Nifedical Xl] 60 mg PO DAILY 08/03/13 05/18/16 05/10/16 09:00 History 60 mg Sevelamer Carbonate [Renvela] 2 each PO TIDWM 08/03/13 05/18/16 05/10/16 18:00 History 2 Zolpidem [Ambien] 5 mg PO QHS 08/03/13 05/18/16 05/10/16 20:00 History 5mg Vit B Cmplx 3/FA/Vit C/Biotin 1 each PO QDAY 11/10/13 05/18/16 05/10/16 History [Nephro-Isaías Rx Tablet] 1 Vit B Cmplx 3/FA/Vit C/Biotin 1 each PO DAILY 04/21/16 05/18/16 05/10/16 09:00 History [Nephro-Isaías Rx Tablet] 1 Ondansetron [Zofran Odt] 4 mg PO Q8HR PRN #30 tab.rapdis 05/11/16 05/18/16 Unknown Rx traMADol [Ultram 50 MG tab] 50 mg PO Q6HR PRN #20 tablet 05/11/16 05/18/16 Unknown Rx Active Meds: Active Medications Acetaminophen (Tylenol) 650 mg PO Q4H PRN PRN Reason: Pain MILD(1-3)/Fever >100.5/HUYNH Last Admin: 05/19/16 10:45 Dose: 650 mg Bisacodyl (Dulcolax) 10 mg SD QDAY PRN PRN Reason: Constipation unrelieved by MOM Dextrose (D50w (25gm)) 50 ml IV PRN PRN PRN Reason: Hypoglycemia Docusate Sodium (Colace) 100 mg PO BID [facility] Last Admin: 05/19/16 13:58 Dose: Not Given Furosemide (Lasix) 80 mg PO DAILY [facility] Last Admin: 05/19/16 13:59 Dose: Not Given Hydralazine HCl (Apresoline) 10 mg IV Q4HR PRN PRN Reason: sbp>160 or dbp >105 Last Admin: 05/19/16 09:01 Dose: 10 mg Sodium Chloride (Nacl 0.9% 1000 Ml) 100 mls @ 999 mls/hr IV ALFREDA PRN PRN Reason: Hypotension Insulin Aspart (Novolog) 0 units SUB-Q ACHS YVONNE PRN Reason: Protocol Last Admin: 05/19/16 14:00 Dose: Not Given Nifedipine (Procardia Xl) 60 mg PO DAILY [facility] Last Admin: 05/19/16 13:59 Dose: Not Given Ondansetron HCl (Zofran) 4 mg IV Q4H PRN PRN Reason: Nausea And Vomiting Sevelamer Carbonate (Renvela) 800 mg PO TIDWM [facility] Last Admin: 05/19/16 13:58 Dose: Not Given Tramadol HCl (Ultram) 50 mg PO Q6HR PRN PRN Reason: Pain Zolpidem Tartrate (Ambien) 5 mg PO QHS [facility] Last Admin: 05/18/16 23:38 Dose: 5 mg Exam - Constitutional Vitals: Temp Pulse Resp BP Pulse Ox 94.4 F L 82 22 166/67 96 05/19/16 13:54 05/19/16 13:54 05/19/16 13:54 05/19/16 13:54 05/19/16 08:33 Results - Labs CBC & Chem 7: 05/19/16 06:23 05/19/16 06:23 Labs: Abnormal lab results 05/18/16 05/18/16 05/19/16 Range/Units 18:17 22:56 06:23 WBC 13.0 H (4.5-11.0) K/mm3 MCHC 31 L (32-34) % RDW 18.8 H (13.2-15.2) % Plt Count 120 L (140-440) K/mm3 Lymph % (Auto) 4.3 L (13.4-35.0) % [place] % (Auto) 7.5 H (0.0-7.3) % Lymph # 0.6 L (1.2-5.4) K/mm3 [place] # 1.0 H (0.0-0.8) K/mm3 Seg Neutrophils % 87.8 H (40.0-70.0) % Seg Neutrophils # 11.4 H (1.8-7.7) K/mm3 Chloride (98-107) mmol/L BUN (9-20) mg/dL Creatinine (0.8-1.5) mg/dL Glucose (75-100) mg/dL POC Glucose 117 H 125 H (70-105) Magnesium (1.7-2.3) mg/dL 05/19/16 05/19/16 05/19/16 Range/Units 06:23 06:23 06:32 WBC (4.5-11.0) K/mm3 MCHC (32-34) % RDW (13.2-15.2) % Plt Count (140-440) K/mm3 Lymph % (Auto) (13.4-35.0) % [place] % (Auto) (0.0-7.3) % Lymph # (1.2-5.4) K/mm3 [place] # (0.0-0.8) K/mm3 Seg Neutrophils % (40.0-70.0) % Seg Neutrophils # (1.8-7.7) K/mm3 Chloride 93.0 L (98-107) mmol/L BUN 46 H (9-20) mg/dL Creatinine 6.2 H (0.8-1.5) mg/dL Glucose 145 H (75-100) mg/dL POC Glucose 112 H (70-105) Magnesium 2.7 H (1.7-2.3) mg/dL Assessment and Plan Pt on HD for ESRD, with multiple medical problems, who has dysphagia to solids frequently x several weeks. Pt is on Plavix at home for PAD with dilation of vessels in LEs several months ago by Dr. Blakely (per ). - pt needs EGD with possible dilation, but must be off Plavix for at least 5 days, so 05/24 at the earliest. This can be done as an outpatient.
[2016-05-19] MEDS: ZOFRAN IV PRN ×2 (17:00→21:32)
[2016-05-19] MEDS: AMBIEN PO SCH (21:32)
[2016-05-20] MEDS ORDERED: NACL 0.45% 1000 ML IV ONE (00:22)
[2016-05-20] MEDS ORDERED: CARDIZEM IV ONE (00:40)
[2016-05-20 00:56] LABS: BUN/Creatinine Ratio 5.9; Calcium 9.2 mg/dL (8.4-10.2); Chloride 92.8 mmol/L (98-107); Potassium 4.3 mmol/L (3.6-5.0)
[2016-05-20] MEDS: CORDARONE PO SCH ×2 (02:01→09:49)
[2016-05-20] MEDS ORDERED: CORDARONE PO ONE (04:40)
[2016-05-20] MEDS: NOVOLOG SUB-Q SCH ×2 (08:19→13:39)
[2016-05-20] MEDS: RENVELA PO SCH (08:19)
[2016-05-20 08:39] VITALS: BP 140/60
--- NOTE | 2016-05-20 09:45 | Consultation ---
History of Present Illness Consult date: 05/20/16 Consult reason: elevated troponin History of present illness: Patient is presenting with abdominal pain and dysphagia. Cardiology consulted for elevated troponin and paroxysmal atrial fibrillation. at bedside denies chest pain or shortness of breath. Patient follows with Dr Dacosta in [facility] and had a recent cath and echo done within the last 3 months. He is currently back in . Past History Past Medical History: diabetes, dialysis, hypertension, hyperlipidemia, other ( blind) Past Surgical History: appendectomy, Other (dialysis port) Social history: , full code Family history: no significant family history Medications and Allergies Allergies Allergy/AdvReac Type Severity Reaction Status Date / Time No Known Allergies Allergy Verified 08/03/13 12:41 Home Medications Medication Instructions Recorded Confirmed Last Taken Type Aspirin EC [Aspirin Enteric Coated 81 mg PO DAILY 08/03/13 05/18/16 05/11/16 17: 36 History TAB] 0900 Furosemide 80 mg PO DAILY 08/03/13 05/18/16 05/10/16 09:00 History 40mg Insulin Glargine,Hum.rec.anlog 1 - 30 units SQ DAILY PRN 08/03/13 05/18/1604/12 09:00 History [Lantus Solostar] 1 NIFEdipine [Nifedical Xl] 60 mg PO DAILY 08/03/13 05/18/16 05/10/16 09:00 History 60 mg Sevelamer Carbonate [Renvela] 2 each PO TIDWM 08/03/13 05/18/16 05/10/16 18:00 History 2 Zolpidem [Ambien] 5 mg PO QHS 08/03/13 05/18/16 05/10/16 20:00 History 5mg Vit B Cmplx 3/FA/Vit C/Biotin 1 each PO QDAY 11/10/13 05/18/16 05/10/16 History [Nephro-Isaías Rx Tablet] 1 Vit B Cmplx 3/FA/Vit C/Biotin 1 each PO DAILY 04/21/16 05/18/16 05/10/16 09:00 History [Nephro-Isaías Rx Tablet] 1 Ondansetron [Zofran Odt] 4 mg PO Q8HR PRN #30 tab.rapdis 05/11/16 05/18/16 Unknown Rx traMADol [Ultram 50 MG tab] 50 mg PO Q6HR PRN #20 tablet 05/11/16 05/18/16 Unknown Rx Active Meds: Active Medications Acetaminophen (Tylenol) 650 mg PO Q4H PRN PRN Reason: Pain MILD(1-3)/Fever >100.5/HUYNH Last Admin: 05/19/16 10:45 Dose: 650 mg Amiodarone HCl (Cordarone) 200 mg PO BID [facility] Last Admin: 05/20/16 02:01 Dose: 200 mg Bisacodyl (Dulcolax) 10 mg CO QDAY PRN PRN Reason: Constipation unrelieved by MOM Dextrose (D50w (25gm)) 50 ml IV PRN PRN PRN Reason: Hypoglycemia Docusate Sodium (Colace) 100 mg PO BID [facility] Last Admin: 05/19/16 21:32 Dose: 100 mg Furosemide (Lasix) 80 mg PO DAILY [facility] Last Admin: 05/19/16 13:59 Dose: Not Given Hydralazine HCl (Apresoline) 10 mg IV Q4HR PRN PRN Reason: sbp>160 or dbp >105 Last Admin: 05/19/16 09:01 Dose: 10 mg Sodium Chloride (Nacl 0.9% 1000 Ml) 100 mls @ 999 mls/hr IV ALFREDA PRN PRN Reason: Hypotension Insulin Aspart (Novolog) 0 units SUB-Q ACHS [facility] PRN Reason: Protocol Last Admin: 05/20/16 08:19 Dose: 1 units Nifedipine (Procardia Xl) 60 mg PO DAILY [facility] Last Admin: 05/19/16 13:59 Dose: Not Given Ondansetron HCl (Zofran) 4 mg IV Q4H PRN PRN Reason: Nausea And Vomiting Last Admin: 05/19/16 21:32 Dose: 4 mg Sevelamer Carbonate (Renvela) 800 mg PO TIDWM [facility] Last Admin: 05/20/16 08:19 Dose: 800 mg Tramadol HCl (Ultram) 50 mg PO Q6HR PRN PRN Reason: Pain Zolpidem Tartrate (Ambien) 5 mg PO QHS [facility] Last Admin: 05/19/16 21:32 Dose: 5 mg Review of Systems All systems: negative Physical Examination Vital Signs Temp Pulse BP Pulse Ox 98.1 F 89 194/87 98 05/18/16 07:23 05/18/16 07:23 05/18/16 07:23 05/18/16 07:23 General appearance: no acute distress HEENT: Positive: PERRL Neck: Positive: neck supple Cardiac: Positive: Reg Rate and Rhythm Lungs: Positive: Decreased Breath Sounds Abdomen: Positive: Soft Extremities: Absent: edema Results 05/19/16 06:23 05/20/16 00:30 Comprehensive Metabolic Panel 05/20/16 Range/Units 00:30 Sodium 135 L (137-145) mmol/L Potassium 4.3 (3.6-5.0) mmol/L Chloride 92.8 L (98-107) mmol/L Carbon Dioxide 26 (22-30) mmol/L BUN 26 H (9-20) mg/dL Creatinine 4.4 H (0.8-1.5) mg/dL Glucose 193 H (75-100) mg/dL Calcium 9.2 (8.4-10.2) mg/dL Assessment and Plan Non-specific troponin abnormality in the setting of ESRD No signs of symptoms of ACS Cardiac cath 02/2016 - Intermediate non-signficant mid LAD stenosis by FFR Echo 02/2016 - LVEF 50% Paroxysmal atrial fibrillation - back in [place] No previous history of afib reported or recorded by outpatient holter monitor End-stage renal disease needing hemodialysis Dysphagia - GI on board Type 2 diabetes mellitus Systemic hypertension History of PVD on plavix Recommendations: Agree with po amiodarone 200 mg po bid to maintain rhythm Resume carvedilol 6.25 mg po bid for rate control May stop plavix cardiac ponce in anticipation for endoscopy May proceed cardiac ponce with endoscopy if needed this admission No further cardiac work-up needed Will hold on anticoagulation unless there is evidence of recurrent atrial fibrillation
[2016-05-20] MEDS: COLACE PO SCH (09:49)
[2016-05-20] MEDS: LASIX PO SCH (09:49)
[2016-05-20] MEDS: PROCARDIA XL PO SCH (09:49)
[2016-05-20] MEDS ORDERED: COREG PO SCH (10:00)
--- NOTE | 2016-05-20 10:39 | Discharge Summary ---
Providers - Providers Date of Admission: 05/18/16 11:52 Date of discharge: 05/20/16 Attending physician: SIA PONCE 05/18/16 11:55 Consult to Dietitian/Nutrition [CONS] Routine Physician Instructions: Reason For Exam: Reason for Consult: Malnutrition Occupational Therapy Evaluate and Treat [CONS] Routine Comment: Reason For Exam: debility Physical Therapy Evaluation and Treat [CONS] Routine Comment: Reason For Exam: debility 05/18/16 11:56 Consult to Wound/ET Nurse [CONS] Routine Reason For Exam: wound eval 05/18/16 12:04 Speech Therapy Evaluation and Treat [CONS] Routine Reason For Exam: dysphagia 05/19/16 11:58 Consult to Physician [CONS] Routine Consulting Provider: MARGARITA SANON Reason For Exam: dysphagia Place consult to:: Deon Sanon M.D. Notified:: answering service Phone number called:: [phone] Was contact made?: Yes If yes, spoke with:: livia Time called:: 13:52 05/19/16 12:06 Consult to Physician [CONS] Routine Consulting Provider: DAVID GRIFFIN Reason For Exam: risk for EGD, elevated Troponin Place consult to:: Marquis Griffin MD Notified:: answering service Phone number called:: [phone] Was contact made?: Yes If yes, spoke with:: goldy Time called:: 14:00 Primary care physician: PREDATORY GAME HUNTER Hospitalization Condition: Stable Hospital course: Patient is a 65-year-old man with a history of end-stage renal disease on hemodialysis Saturday, type 2 diabetes mellitus, hypertension, coronary artery disease and blindness who presents with abdominal pain and dysphagia. He was found to have fecal impaction. Fecal impaction resolved End-stage renal disease needing hemodialysis Dysphagia: Consult GI Bilateral pleural effusion, thoracentesis ordered but counseled by department because he is on aspirin and plavix per , d/c ivf Elevated troponin: Consult cardiology Leukocytosis most likely reactive, will monitor Thrombocytopenia, most likely chronic, repeat CBC Type 2 diabetes mellitus, chronic and stable hypertension, chronic and stable DVT prophylaxis: scd only, due to low plt GI prophylaxis: add protonix Full code Disposition: Home per Cardiology, Dr. Wilkerson:" Non-specific troponin abnormality in the setting of ESRD, No signs of symptoms of ACS, Cardiac cath 02/2016 - Intermediate non- signficant mid LAD stenosis by FFR, Echo 02/2016 - LVEF 50% Paroxysmal atrial fibrillation - back in [place], No previous history of afib reported or recorded by outpatient holter monitor, End-stage renal disease needing hemodialysis, Dysphagia - GI on board, Type 2 diabetes mellitus, Systemic hypertension, History of PVD on plavix, Recommendations: Agree with po amiodarone 200 mg po bid to maintain rhythm Resume carvedilol 6.25 mg po bid for rate control, May stop plavix cardiac ponce in anticipation for endoscopy, May proceed cardiac ponce with endoscopy if needed this admission, No further cardiac work-up needed, Will hold on anticoagulation unless there is evidence of recurrent atrial fibrillation per GI, Dr. Persaud: "Pt on HD for ESRD, with multiple medical problems, who has dysphagia to solids frequently x several weeks. Pt is on Plavix at home for PAD with dilation of vessels in LEs several months ago by Dr. Blakely (per ). - pt needs EGD with possible dilation, but must be off Plavix for at least 5 days, so 05/24 at the earliest. This can be done as an outpatient." time of discharge 34 minutes. Disposition: DISCHARGED TO HOME OR SELFCARE Core Measure Documentation - Palliative Care Palliative Care/ Comfort Measures: Not Applicable - Core Measures Any of the following diagnoses?: none - VTE Discharge Requirements Deep Vein Thrombosis/Pulmonary Embolism Present on Admission: No Has pt received <5 days of overlap therapy or INR<2.0: No Anticoagulant overlap therapy prescribed at discharge: No Contraindication No Overlap Therapy order at DC: Not Indicated Exam - Physical Exam Narrative exam: GEN: Cachectic BMI 17 NAD, AWAKE, ALERT, ORIENTATED 3 HEENT: NCAT, PERRL, EOMI, OP CLEAR NECK: SUPPLE, NO THYROMEGALY, NO JVD, NO LAD CVS: RRR, NORMAL S1S2 LUNGS/CHEST: NORMAL CHEST EXPANSION B, mildly reduced AIR ENTRY B, not on oxygen sat 96% ABD: SOFT NTND, GBS, NO REBOUND OR GUARDING EXT/SKIN: NO SIGNIFICANT EDEMA OR RASH MSK: FROM X 4 EXTREMITIES NEURO: CN 2-12 GROSSLY INTACT except for blindness, NO NEW FOCAL DEFICITS PSY: CALM - Constitutional Vitals: Temp Pulse Resp BP Pulse Ox 97.8 F 78 16 140/60 97 05/20/16 07:30 05/20/16 07:30 05/20/16 07:30 05/20/16 07:30 05/20/16 09:20 Plan Activity: advance as tolerated (no strenous activites until cleared by PCP. ), up only with assistance, fall precautions Diet: low salt, advance as tolerated Additional Instructions: Hold aspirin and Plavix [address] Blakely regarding holding the Plavix. Follow up with: PRIMARY CAREMD [Primary Care Provider] - 3-5 Days ROSY BARDALES MD [Staff Physician] - 3 Days Prescriptions: Bisacodyl [Dulcolax suppos] 10 mg NV QDAY PRN #4 supp.rect PRN Reason: Constipation
--- NOTE | 2016-05-20 15:06 | Progress Note ---
Assessment and Plan - Patient Problems (1) ESRD (end stage renal disease) on dialysis Current Visit: Yes Status: Acute Plan to address problem: No indication for Hemodialysis today Patient being discharged home today. Continue HD at [facility] every Saturday, , and Saturday. Assess need for HD on daily basis Renally dose medications Diabetic/Renal diet Maintain fluid restriction of 1 liter per day Obtain daily weight Strict intake and output Renal plan discussed with Dr Britton Continue supportive therapy (2) Type 2 diabetes mellitus with ESRD (end-stage renal disease) Current Visit: Yes Status: Acute Plan to address problem: As per primary team On insulin (3) Hypertensive kidney disease with ESRD on dialysis Current Visit: Yes Status: Acute Plan to address problem: On nifedipine 60 mg orally once a day and coreg 6.25 mg orally twice a day, monitor blood pressure and adjust medications as needed (4) Dysphagia Current Visit: Yes Status: Acute Plan to address problem: Gastroenterology consulted, will arrange for EGD as an outpatient since patient needs to be off plavix for at least 5 days (5) Bilateral pleural effusion Current Visit: Yes Status: Acute Plan to address problem: Thoracentesis discontinued Subjective Date of service: 05/20/16 Interval history: Patient reports feeling ok today, states he is ready to go home. Family at bedside. Objective - Vital Signs Vital signs: Vital Signs - 12hr 05/20/16 05/20/16 05/20/16 04:31 04:47 07:30 Temperature 97.5 F L 97.8 F Pulse Rate [ 123 H 123 H 78 Right] Respiratory 18 16 Rate Blood Pressure 116/56 116/56 140/60 [Right Arm] O2 Sat by Pulse 98 93 Oximetry 05/20/16 09:20 Temperature Pulse Rate [ Right] Respiratory Rate Blood Pressure [Right Arm] O2 Sat by Pulse 97 Oximetry - General Appearance General appearance: frail (no acute distress) EENT: ATNC Neck: no JVD Respiratory: Present: Other (Lung sounds decreased bilaterally, unlabored) Cardiology: regular, S1S2, other (ACCESS: Left Arteriovenous shunt with positive thrill and bruit) Gastrointestinal: normoactive bowel sounds, no tenderness Integumentary: other (skin sores to both lower extremities) Neurologic: alert and oriented x3 Musculoskeletal: other (no edema to both lower extremities) Psychiatric: mood/affect appropriate - Lab 05/19/16 06:23 05/20/16 00:30 Most recent lab results Calcium 9.2 mg/dL (8.4-10.2) 05/20/16 00:30 Phosphorus 4.0 mg/dL (2.5-4.5) 05/19/16 06:23 Magnesium 2.7 mg/dL (1.7-2.3) H 05/19/16 06:23
--- NOTE | 2016-05-20 15:09 | Consultation ---
REASON FOR CONSULTATION: Dysphagia. HISTORY OF PRESENT ILLNESS: The patient is a 65-year-old man who has multiple medical problems and presented to the Emergency Room with complaints of right lower quadrant abdominal pain, which had been going on and off for several weeks. The patient was apparently treated with laxatives and had a good bowel movement and that symptom has resolved. However, he also complains of dysphagia for which we are consulted. The patient has a history of dysphagia to solids that has developed over the last several weeks and it seems to occur almost every time he eats solids. He states he has no problems with liquids. He denies pain on swallowing. He denies any known history of heartburn recently, but there is a history of GERD on his chart. Of note, patient's states he is on Plavix for peripheral artery disease involving his lower extremities and with that he was put on this about 2-[address] Blakely. The patient may have lost up to 10 pounds over the last 6 months. According to the , the appetite is unchanged. The patient himself denies any abdominal pain, nausea, or vomiting other than the lower abdominal discomfort previously described. He has bowel movements once a day to every several days and there has been no GI bleeding. There is no chest pain or shortness of breath. ALLERGIES: He has no known drug allergies. HOME MEDICATIONS: Listed in the computer consist of insulin, nifedipine, Zofran, Renvela, Lasix, tramadol, and 81 mg aspirin, and showed me the bottle of Plavix that he is also taking at home. PAST MEDICAL HISTORY: He has a history of, 1. Diabetes. 2. Hypertension. 3. End-stage renal disease - on hemodialysis x8 years. 4. Coronary artery disease. 5. Peripheral artery disease - been placed on Plavix several months ago by Dr. Blakely per patient. 6. Per chart, GERD, though patient denies heartburn and is on no home medications for it. 7. Blindness - secondary to diabetes. FAMILY HISTORY: Noncontributory. SOCIAL HISTORY: Negative for tobacco or ethanol usage. REVIEW OF SYSTEMS: Essentially as noted above and otherwise negative. PHYSICAL EXAMINATION: GENERAL: This is a cachectic elderly appearing white male who is blind and lying in bed, in no apparent distress. VITAL SIGNS: Temperature is 94.4, pulse 82, blood pressure 166/67. HEENT: He is anicteric. Oropharynx is clear with no evidence of thrush. LUNGS: Clear bilaterally to auscultation. CARDIOVASCULAR: Examination is regular with no extra heart sounds. ABDOMEN: Thin and soft with good bowel sounds and no organomegaly or tenderness to deep palpation. RECTAL: Deferred. EXTREMITIES: Thin. He has a patent left upper extremity AV fistula. NEUROLOGIC: He is alert, oriented x3, and grossly nonfocal. LABORATORY DATA: White count is 13.0, hemoglobin 12.5, hematocrit 40.4, MCV of 91, platelet count of 120,000. Sodium 139, potassium 4.7, chloride 92, bicarbonate 30, BUN 46, creatinine 6.2, glucose 145. AST on admission was 14, ALT is 6, alkaline phosphatase is 65, total bilirubin of 0.8, albumin of 3.8. Amylase and lipase were normal. IMPRESSION: 1. Dysphagia - this appears to be structural given that he complains only of dysphagia to solids and not to liquids. The patient needs an upper endoscopy with probable dilation. However, he will need to be off of Plavix for at least 5 days before we can do this. This was explained to the patient and his . This soon, we would do this is approximately 05/24/2016. If desired, the patient can be discharged to home when otherwise stable and we can do this as an outpatient. On the other hand, he is in the hospital, we will do this as an inpatient. In the meantime, the patient stay on it should stay on soft diet. 2. Abdominal pain -- patient initially came in with abdominal pain, which the states was due to constipation since he got better after a bowel movement. I would recommend that he stay on daily MiraLax or lactulose in order to prevent constipation and see if this does not help prevent ongoing problems with abdominal pain. JOB# [id number] HRC/NTS
== END 2016-05-20 15:37 | disposition home or self-care (01) | DRG 388 ==
LOC: ED 07:19 → 3A 11:52
PROVIDERS: ADMIT Internal Medicine; ATTEND Internal Medicine
PROC: 5A1D00Z (ICD-10-PCS; principal; 2016-05-19)
DX: K56.41 Fecal impaction (principal); N18.6 End stage renal disease; E43 Unspecified severe protein-calorie malnutrition; J90 Pleural effusion, not elsewhere classified; I12.0 Hypertensive chronic kidney disease with stage 5 chronic kidney disease or end stage renal disease; Z68.1 Body mass index [BMI] 19.9 or less, adult; R62.7 Adult failure to thrive; I25.10 Atherosclerotic heart disease of native coronary artery without angina pectoris; E11.22 Type 2 diabetes mellitus with diabetic chronic kidney disease; K21.9 Gastro-esophageal reflux disease without esophagitis; K57.90 Diverticulosis of intestine, part unspecified, without perforation or abscess without bleeding; E78.5 Hyperlipidemia, unspecified; H54.8 Legal blindness, as defined in USA; D72.829 Elevated white blood cell count, unspecified; E87.6 Hypokalemia; D69.6 Thrombocytopenia, unspecified; R13.10 Dysphagia, unspecified; E11.51 Type 2 diabetes mellitus with diabetic peripheral angiopathy without gangrene; I48.0 Paroxysmal atrial fibrillation; Z99.2 Dependence on renal dialysis; Z95.5 Presence of coronary angioplasty implant and graft; Z90.49 Acquired absence of other specified parts of digestive tract; Z87.891 Personal history of nicotine dependence; Z79.4 Long term (current) use of insulin; Z79.899 Other long term (current) drug therapy; Z79.82 Long term (current) use of aspirin; Z79.02 Long term (current) use of antithrombotics/antiplatelets
CPT/HCPCS: 36415; 71020; 74020; 80048; 80053; 80061; 82150; 82550; 82553; 82962; 83690; 83735; 84100; 84484; 85025; 85610; 93005; 93010; 96374; J0360; J1644; J1815; J2405; J3480; J7030